=== PATIENT | female | born 1955 | race Caucasian/White ===

== ENCOUNTER 2021-04-21 10:12 | Emergency (ER) | payer BC, SELFPAY ==
[2021-04-21 10:15] VITALS: BP 118/77; PULSE 72; RESP 19; TEMP 36.8; O2SAT 99; BMI 30.5
[2021-04-21 10:44] LABS: Apearance,Urine Clear (Clear); Bilirubin,Urine Negative (Negative); Blood, Urine Negative (Negative); Color,Urine Yellow (Yellow); Glucose,Urine (UA) Negative (Negative); Ketones,Urine Negative (Negative); PH,Urine 5.5 (5.0-8.5); Protein,Urine Negative (Negative); UTC Leukocyte Esterase,Urine Negative (Negative); UTC Nitrate,Urine Negative (Negative); Urobilinogen,Urine 0.2 EU/dl (0.2)
--- NOTE | 2021-04-21 10:52 | HMH.EDUTC ---
[facility] [place] Clinical Impression: Muscle spasm Disposition: Home, Self-Care Condition on Discharge: Good Instructions: Methocarbamol, Etodolac, DI for Muscle Spasm Additional Instructions: *Etodolac kellen 6 hours with meal as needed for pain/inflammation *Not additional anti-inflammatory like Ibuprofen, motrin, aleve, advil with the above amount of Etodolac. You can still take Tylenol every 4 hours as needed if you need something else for pain *Ice 20 minutes every 2 hours for the first 48 hours after the initial injury followed by moist heat every 20 minutes 3-4 times a day to affected area *Muscle relaxer as prescribed as needed for muscle spasms but remember, it WILL cause drowsiness You cannot take it and drive, operate machinery or care for small children. *Keep this area active, no movement leads to more stiffness, However take it easy and avoid heavy lifting pushing or pulling *Follow up with you family doctor if no improvement for further treatment Recommend changing your Pillow as this could be contributing to your neck pain, make sure to get a pillow that supports your neck and helps to keep your C-spine area in alignment Prescriptions: Etodolac 200 mg PO Q6HP PRN #20 cap PRN Reason: Moderate Pain Transmission Status: Pending to [id number] [place] [facility] methocarbamoL [Methocarbamol] 750 mg PO BID PRN #12 tab PRN Reason: Muscle Spasm Transmission Status: Pending to [id number] - [place] [facility] Referrals: Salomón Dotson [Primary Care Provider] - As needed Time of Disposition: 11:08 Medical Decision Making - Ruddy Inquiry Pt receiving controlled substance: No Ruddy was queried for this patient: No Vital Signs: 04/21/21 10:15 04/21/21 11:02 Temperature 98.3 F 98.3 F Temperature Source Oral Pulse Rate 72 Pulse Rate [Right Brachial] 72 Respiratory Rate 19 19 Blood Pressure 118/77 Blood Pressure [Right Arm] 118/77 Blood Pressure Mean [Right Arm] 90 Blood Pressure Source [Right Arm] Automatic Cuff Blood Pressure Position [Right Arm] Sitting 02 Sat by Pulse Oximetry 99 Oxygen Delivery Method Room Air - Lab Data Lab Results 04/21/21 10:36: Urine Color Yellow, Urine Appearance Clear, Urine pH 5.5, Ur Specific [place] 1.010, Urine Protein Negative, Urine Glucose (UA) Negative, Urine Ketones Negative, Urine Blood Negative, Urine Nitrate Negative, Urine Bilirubin Negative, Urine Urobilinogen 0.2, Ur Leukocyte Esterase Negative Medical Decision Narrative: Patient denies injury reports pain was present after waking up last week and thinks she may have slept wrong [facility] [place] General Stated complaint: Neck & shoulder pain Time Seen by Provider: 04/21/21 10:52 Mode of Arrival: Ambulatory Source of Information: Patient Limitations: No Limitations Description of Symptoms (Recalled from Triage Doc. by RN): PATIENT C/O LEFT SHOULDER AND NECK PAIN SINCE THIS MORNING. ALSO C/O BURING AND FREQUENT URINATION HEENT Symptoms (Recalled from RN notes): No Resp Symptoms (Recalled from RN notes): No Skin Symptoms (Recalled from RN notes): No MS Symptoms (Recalled from RN notes): Yes Functional Status (Recalled from RN notes): WNL - History of Present Illness Provider Complaint: Patient states that she has been having pain down the left side of her neck into shoulder area States that she woke up feeling like she was stiff and having muscle spasm last week State that since then it hasnt got any better and she woke up this morning and it was still hurting so she came in States that she has also been feeling like she was urinating more than usual but it has been hot and she has been drinking more fluids and wanted to get checked for UTI - Related Data Home Medications Medication Instructions Recorded Confirmed Domperidone [Domperidone 10mg Tab] 10 mg PO TID 04/21/21 04/21/21 Pantoprazole Sodium [Protonix 40mg 40 mg PO HS 04/21/21 04/21/21 tablet] Previous Rx's Medi
[2021-04-21 11:02] VITALS: BP 118/77; PULSE 72; RESP 19; TEMP 36.8; O2SAT 99
== END 2021-04-21 11:07 | disposition home or self-care (01) ==
PROVIDERS: Emergency Provider Nurse Practitioner; PCP Internal Medicine
DX: M62.838 Other muscle spasm (principal); M25.512 Pain in left shoulder
CPT/HCPCS: 81003; 99202; G0463

== ENCOUNTER 2022-02-15 12:48 | Emergency (ER) | payer BC, SELFPAY ==
[2022-02-15 13:05] VITALS: BP 103/63; PULSE 75; RESP 18; TEMP 36.8; O2SAT 98; BMI 28.3
--- NOTE | 2022-02-15 13:48 | HMH.EDUTC ---
[facility] [place] Disposition Clinical Impression: Otitis media Qualifiers: Otitis media type: suppurative Chronicity: acute Laterality: right Recurrence: non-recurrent Spontaneous tympanic membrane rupture: without spontaneous rupture Qualified Code(s): H66.001 - Acute suppurative otitis media without spontaneous rupture of ear drum, right ear Disposition: Home, Self-Care Condition on Discharge: Good Instructions: Middle Ear Infection Additional Instructions: Start antibiotic as soon as possible and be sure to take as ordered for full length of time even though he should start feeling better in 24-48 hours. Tylenol or Motrin as needed for pain or fever Encourage fluids, water, Gatorade, Powerade, Pedialyte if /toddler/child Warm compresses often helps when placed over ear Return immediately for new or worsening symptoms no noticeable improvement in 48-72 hours and in 10-14 days to ensure the ears are return to baseline. Follow-up with primary care if no improvement Prescriptions: Amoxicillin [Amoxicillin 500mg Tab] 500 mg PO BID 10 Days #20 tab Transmission Status: Pending to [id number] Referrals: Provider,Referral, [Primary Care Provider] - Time of Disposition: 13:53 Medical Decision Making - Ruddy Inquiry Pt receiving controlled substance: No Vital Signs: 02/15/22 13:05 Temperature 98.3 F Temperature Source Oral Pulse Rate [Right Brachial] 75 Respiratory Rate 18 Blood Pressure [Right Arm] 103/63 L Blood Pressure Mean [Right Arm] 76 Blood Pressure Source [Right Arm] Automatic Cuff Blood Pressure Position [Right Arm] Sitting 02 Sat by Pulse Oximetry 98 Oxygen Delivery Method Room Air [facility] [place] HPI - General Chief complaint: Urgent Treatment Center Stated complaint: ear ache Time Seen by Provider: 02/15/22 13:48 Mode of Arrival: Ambulatory Source of Information: Patient Limitations: No Limitations Description of Symptoms (Recalled from Triage Doc. by RN): PATIENT C/O BILATERAL EAR PAIN AND COUGH X 1 WEEK HEENT Symptoms (Recalled from RN notes): Yes Resp Symptoms (Recalled from RN notes): Yes Skin Symptoms (Recalled from RN notes): No MS Symptoms (Recalled from RN notes): No Functional Status (Recalled from RN notes): WNL - History of Present Illness Provider Complaint: 66 yr old female presents for jose ear pain and cough for 1 week - Related Data Home Medications Medication Instructions Recorded Confirmed Domperidone [Domperidone 10mg Tab] 10 mg PO TID 04/21/21 04/21/21 Pantoprazole Sodium [Protonix 40mg 40 mg PO HS 04/21/21 04/21/21 tablet] Previous Rx's Medication Instructions Recorded Etodolac 200 mg PO Q6HP PRN #20 cap 04/21/21 methocarbamoL [Methocarbamol] 750 mg PO BID PRN #12 tab 04/21/21 Amoxicillin [Amoxicillin 500mg Tab] 500 mg PO BID 10 Days #20 tab 02/15/22 Allergies Allergy/AdvReac Type Severity Reaction Status Date / Time No Known Allergies Allergy Verified 04/21/21 10:47 - Worker's Comp Is this a Worker's Comp case?: No [facility] History - Hepatitis A Screen Attestation statement:: This patient has been screened for Hepatitis A risk factors. I have reviewed the patient's past medical history: Yes Medical History: Reports:: Cancer - Social History Alcohol Intake: never Occupational Status: other ROS Obtained: Yes Systems reviewed as appropriate & no additional complaints - Constitutional Constitutional: Reports system reviewed and no additional complaints, except as docu, Denies fatigue, Denies fever(s) - Eyes Eyes: Reports system reviewed and no additional complaints, except as docu, Denies dry eyes - ENT Ears, Nose, Mouth, and Throat: Reports system reviewed and no additional complaints, except as docu, Reports otalgia - Cardiovascular Cardiovascular: Reports system reviewed and no additional complaints, except as docu, Denies chest pain at rest - Respiratory Respiratory: Reports system reviewed and no additional complaints, exc
[2022-02-15 14:00] VITALS: BP 103/63; PULSE 75; RESP 18; TEMP 36.8; O2SAT 98
[2022-02-15 19:03] LABS: Apearance,Urine Clear (Clear); Bilirubin,Urine Negative (Negative); Blood, Urine Negative (Negative); Color,Urine Dark Yellow (Yellow); Glucose,Urine (UA) Negative (Negative); Ketones,Urine Negative (Negative); Protein,Urine Negative (Negative); Urobilinogen,Urine 0.2 EU/dl (0.2)
[2022-02-15 19:04] LABS: UTC Leukocyte Esterase,Urine Negative (Negative); UTC Nitrate,Urine Negative (Negative)
== END 2022-02-15 14:04 | disposition home or self-care (01) ==
PROVIDERS: Emergency Provider Nurse Practitioner Family
DX: H66.001 Acute suppurative otitis media without spontaneous rupture of ear drum, right ear (principal)
CPT/HCPCS: 81003; 99212; G0463

== ENCOUNTER 2022-02-22 10:50 | Emergency (ER) | payer BC, SELFPAY ==
[2022-02-22 11:27] VITALS: BP 107/55; PULSE 72; RESP 18; TEMP 37.3; O2SAT 98; BMI 28.1
--- NOTE | 2022-02-22 11:30 | HMH.EDUTC ---
[facility] [place] Clinical Impression: Otitis media Qualifiers: Otitis media type: unspecified Laterality: right Qualified Code(s): H66.91 - Otitis media, unspecified, right ear Disposition: Home, Self-Care Condition on Discharge: Good Instructions: Middle Ear Infection, Methylprednisolone, Amoxicillin and Clavulanic Acid Additional Instructions: *Monitor Temp, Over the counter Motrin or Tylenol as directed/as needed Tylenol every 4 hours and Motrin every 6 hours (as long as your family doctor has told you that you can take it) for fever or pain. and straight to ER if unable to lower temp less than 101.0 after medication given Make sure to eat yogurt or take a probiotic while taking these antibiotics to help with GI upset *Sleep elevated *Humidifier/Vaporizer *Flonase 2 sprays in each nostril daily but be aware that it may take 2-3 days before you notice improvement Stop Amoxicillin and start Augmentin immediately Follow up IMMEDIATELY for new or worsening symptoms or no Noticeable improvement over the next 48-72 hours. 911 for difficulty breathing or swallowing Prescriptions: Amoxicillin/Potassium Clav [Amox-Clav 875-125 mg Tablet] 1 tab PO BID #14 tab Transmission Status: Received by [id number] Fluticasone Propionate [Flonase 50mcg nasal spray 16gm] 1 spr NS DAILY #1 each Transmission Status: Received by [id number] methylPREDNISolone [Medrol 4mg tab] 4 mg PO DIRECTED #21 tab Transmission Status: Received by [id number] Referrals: Salomón Dotson [Primary Care Provider] - As needed Time of Disposition: 11:49 Medical Decision Making - Ruddy Inquiry Pt receiving controlled substance: No Ruddy was queried for this patient: No Vital Signs: 02/22/22 11:27 Temperature 99.1 F Temperature Source Oral Pulse Rate [Left] 72 Respiratory Rate 18 Blood Pressure [Right Arm] 107/55 L Blood Pressure Mean [Right Arm] 72 02 Sat by Pulse Oximetry 98 Orders (Tests/Meds): ED MEDICATIONS Discontinued Medications Generic Name Dose Route Start Last Admin Trade Name Freq PRN Reason Stop Dose Admin Methylprednisolone Sodium Succinate 125 mg 02/22/22 11:32 02/22/22 11:42 Methylprednisolone Sod Succ 125mg Vial IM 02/22/22 11:33 125 mg ONCE ONE Administration [facility] [place] - General Stated complaint: blockage in ears and cough Time Seen by Provider: 02/22/22 11:30 Mode of Arrival: Ambulatory Source of Information: Patient Limitations: No Limitations Description of Symptoms (Recalled from Triage Doc. by RN): pt c/o ear blockage and pressure that has been going on for 10 days. she endorses a cough as well HEENT Symptoms (Recalled from RN notes): Yes Resp Symptoms (Recalled from RN notes): Yes Skin Symptoms (Recalled from RN notes): No MS Symptoms (Recalled from RN notes): No Functional Status (Recalled from RN notes): wnl - History of Present Illness Provider Complaint: Patient state that she was seen a week or so ago and dx with ear infection States that she has been taking the antibiotics but hasnt helped State that she is still having pain and pressure in her right ear and feeling like it is full and not able to hear out of it - Related Data Home Medications Medication Instructions Recorded Confirmed Domperidone [Domperidone 10mg Tab] 10 mg PO TID 04/21/21 04/21/21 Pantoprazole Sodium [Protonix 40mg 40 mg PO HS 04/21/21 04/21/21 tablet] Previous Rx's Medication Instructions Recorded Etodolac 200 mg PO Q6HP PRN #20 cap 04/21/21 methocarbamoL [Methocarbamol] 750 mg PO BID PRN #12 tab 04/21/21 Amoxicillin [Amoxicillin 500mg Tab] 500 mg PO BID 10 Days #20 tab 02/15/22 Amoxicillin/Potassium Clav 1 tab PO BID #14 tab 02/22/22 [Amox-Clav 875-125 mg Tablet] Fluticasone Propionate [Flonase 1 spr NS DAILY #1 each 02/22/22 50mcg nasal spray 16gm] methylPREDNISolone [Medrol 4mg 4 mg PO DIRECTED #21 tab 02/22/22 tab] Allergies
[2022-02-22 11:59] VITALS: BP 107/55; PULSE 72; RESP 18; TEMP 37.3
== END 2022-02-22 12:00 | disposition home or self-care (01) ==
PROVIDERS: Emergency Provider Nurse Practitioner; PCP Internal Medicine
DX: H66.91 Otitis media, unspecified, right ear (principal); Z79.51 Long term (current) use of inhaled steroids; Z79.52 Long term (current) use of systemic steroids; Z79.899 Other long term (current) drug therapy; Z85.9 Personal history of malignant neoplasm, unspecified
CPT/HCPCS: 96372; 99213; G0463

== ENCOUNTER 2022-12-03 17:04 | Emergency (ER) | payer MEDICARE, BC, SELFPAY ==
--- NOTE | 2022-12-03 17:36 | EXP.UTC ---
Discharge Plan Disposition Patient Disposition: Home, Self-Care Condition: Good Prescriptions Prescriptions: New amoxicillin [amoxicillin] 875 mg tablet 875 mg PO Q12H Qty: 20 0RF benzonatate [benzonatate] 100 mg capsule 100 mg PO TIDP PRN (Reason: Cough) Qty: 30 0RF methylprednisolone 4 mg Tablets,Dose Pack 4 mg PO DIRECTED Qty: 21 0RF promethazine-DM 6.25-15 mg/5 mL Syrup 5 ml PO Q6H PRN (Reason: Cough) Qty: 240 0RF No Action methylprednisolone 4 MG tablet 4 mg PO DIRECTED Qty: 21 0RF Rx Instructions: Take as directed on package instructions Start on 02/23/22 fluticasone propionate 120 SPR/BOT bottle 1 spr NS DAILY Qty: 1 0RF Rx Instructions: one spray in each nostril daily amoxicillin-pot clavulanate 1 EACH tablet 1 tab PO BID Qty: 14 0RF pantoprazole 40 MG tablet,delayed release (DR/EC) 40 mg PO HS Domperidone [Domperidone 10mg Tab] 10 MG tablet 10 mg PO TID etodolac 200 MG capsule 200 mg PO Q6HP PRN (Reason: Moderate Pain) Qty: 20 0RF methocarbamol 750 MG tablet 750 mg PO BID PRN (Reason: Muscle Spasm) Qty: 12 0RF amoxicillin 500 MG tablet 500 mg PO BID 10 Days Qty: 20 0RF Referrals Follow up/Referrals: Salomón Dotson [Primary Care Provider] - See instructions Activity Restrictions/Add. Instructions Additional Instructions/Restrictions: Drink plenty of fluids. Take tylenol or ibuprofen for pain or fever. Take the medications as directed. Follow up with your regular doctor. GO TO THE ER FOR ANY WORSENING SYMPTOMS The cough medication (promethazine dm) will make you drowsy, so don't drive or operate heavy machinery after taking it. The tessalon perles (benzonatate) is for a cough also, it should not make you drowsy. So, you could take this during the day. Clinical Impressions Clinical Impression: Sinusitis, Bronchitis Instructions Patient Instructions: DI for Sinusitis, DI for Acute Bronchitis Discharge ED Provider: David Conde [facility] General Stated complaint: cough congestion Time Seen by Provider: 12/03/22 17:36 History of Present Illness Provider Complaint: She states that for the past 5 days she has had sinus congestion, scratchy sore throat, chest congestion with a productive cough. Related Data Home Medications Medication Instructions Recorded Confirmed Domperidone [Domperidone 10mg Tab] 10 mg PO TID STOMACH/COLON 04/21/21 04/21/21 pantoprazole 40 mg tablet,delayed 40 mg PO HS STOMACH/COLON 04/21/21 04/21/21 release Previous Rx's Medication Instructions Recorded etodolac 200 mg capsule 200 mg PO Q6HP PRN Moderate Pain 04/21/21 #20 caps methocarbamol 750 mg tablet 750 mg PO BID PRN Muscle Spasm #12 04/21/21 tabs amoxicillin 500 mg tablet 500 mg PO BID 10 days #20 tabs 02/15/22 amoxicillin 875 mg-potassium 1 tab PO BID #14 tabs 02/22/22 clavulanate 125 mg tablet fluticasone propionate 50 1 spr NS DAILY #1 ea 02/22/22 mcg/actuation nasal spray,suspension methylprednisolone 4 mg tablet 4 mg PO DIRECTED #21 tabs 02/22/22 amoxicillin 875 mg tablet 875 mg PO Q12H #20 tabs 12/03/22 benzonatate 100 mg capsule 100 mg PO TIDP PRN Cough #30 caps 12/03/22 methylprednisolone 4 mg tablets in 4 mg PO DIRECTED #21 tabs 12/03/22 a dose pack promethazine-DM 6.25 mg-15 mg/5 mL 5 ml PO Q6H PRN Cough #240 mL 12/03/22 oral syrup Allergies Allergy/AdvReac Type Severity Reaction Status Date / Time No Known Allergies Allergy Verified 04/21/21 10:47 [facility] Disclaimer: The information contained in this section may have been updated after the patient was seen, as this information can be updated by other users. Social History Smoking Status: Never smoker alcohol intake: never current occupational status: other Travel in the last 8 weeks: None ROS Obtained: Yes All systems reviewed
[2022-12-03 17:40] VITALS: BP 118/73; PULSE 68; RESP 18; TEMP 37.1; O2SAT 98; BMI 28.3
[2022-12-03 17:56] VITALS: BP 118/73; PULSE 68; RESP 18; TEMP 37.1; O2SAT 98
== END 2022-12-03 17:58 | disposition home or self-care (01) ==
PROVIDERS: Emergency Provider Nurse Practitioner Family; PCP Internal Medicine
DX: J32.9 Chronic sinusitis, unspecified (principal); J40 Bronchitis, not specified as acute or chronic
CPT/HCPCS: 99212; 99213; G0463

== ENCOUNTER 2023-05-28 10:11 | Emergency (ER) | payer MEDICARE, BC, SELFPAY ==
[2023-05-28 10:25] VITALS: BP 133/65; PULSE 56; RESP 20; TEMP 36.8; O2SAT 100; BMI 28.3
--- NOTE | 2023-05-28 10:44 | EXP.UTC ---
Discharge Plan Disposition Patient Disposition: Home, Self-Care Condition: Good Prescriptions Prescriptions: New cyclobenzaprine 10 mg tablet 10 mg PO TID PRN (Reason: muscle spasm) Qty: 30 0RF ibuprofen 800 mg tablet 800 mg PO TID PRN (Reason: pain) Qty: 30 0RF Referrals Follow up/Referrals: Salomón Dotson [Primary Care Provider] - See instructions Activity Restrictions/Add. Instructions Additional Instructions/Restrictions: Do not take ibuprofen today as you have had a Toradol injection. Make sure to eat prior to taking Ibuprofen. If symptoms persist follow up with PCP. Clinical Impressions Clinical Impression: Muscle spasm Low back pain with left-sided sciatica Qualifiers: Chronicity: acute Back pain laterality: bilateral Qualified Code(s): M54.42 - Lumbago with sciatica, left side Instructions Patient Instructions: DI for Low Back Pain, DI for Chronic Pain -- Adult, Exercise May Reduce Risk of Low Back Pain Discharge ED Provider: Nahomy Espinosa [facility] General Stated complaint: lower back pain, no accident Time Seen by Provider: 05/28/23 10:29 History of Present Illness Provider Complaint: Pt relates that she bent over to fill the dogs bowl and felt something move in her back. She states that afterward she used the weed eater and couldn't hardly move afterwards. She reports taking Advil for her symptoms. She states that she is leaving tomorrow for vacation and worries over sitting in car for 11 hours. Related Data Previous Rx's Medication Instructions Recorded cyclobenzaprine 10 mg tablet 10 mg PO TID PRN muscle spasm #30 05/28/23 tabs ibuprofen 800 mg tablet 800 mg PO TID PRN pain #30 tabs 05/28/23 Allergies Allergy/AdvReac Type Severity Reaction Status Date / Time No Known Allergies Allergy Verified 04/21/21 10:47 [facility] Disclaimer: The information contained in this section may have been updated after the patient was seen, as this information can be updated by other users. Social History (Updated 12/03/22 @ 21:55 by David Conde APRN) Smoking Status: Never smoker alcohol intake: never current occupational status: other Travel in the last 8 weeks: None ROS Obtained: Yes All systems reviewed & no additional complaints except as documented Constitutional Constitutional: Reports system reviewed and no additional complaints, except as documented Eyes Eyes: Reports system reviewed and no additional complaints, except as documented ENT Ears, Nose, Mouth, and Throat: Reports system reviewed and no additional complaints, except as documented Cardiovascular Cardiovascular: Reports system reviewed and no additional complaints, except as documented Respiratory Respiratory: Reports system reviewed and no additional complaints, except as documented Gastrointestinal Gastrointestingal: Reports system reviewed and no additional complaints, except as documented Genitourinary Female Genitourinary: Reports system reviewed and no additional complaints, except as documented Musculoskeletal Musculoskeletal: Reports system reviewed and no additional complaints, except as documented, Reports back pain, Reports joint stiffness, Reports limited range of motion, Reports myalgias and Reports radiating pain into limb Integumentary/Breasts Skin/Breast: Reports system reviewed and no additional complaints, except as documented Neurologic Neurologic: Reports system reviewed and no additional complaints, except as documented Endocrine Endocrine: Reports system reviewed and no additional complaints, except as documented Hematologic/Lymphatic Henatologic/Lymphatic: Reports system reviewed and no additional complaints, except as documented Allergic/Immunologic Allergic/Immunologic: Reports system reviewed and no additional complaints, except as documented Physical Exam General General appearance: alert Comment: appears to be in pain Head Head exam: atraumatic and normocephalic
[2023-05-28 10:58] VITALS: BP 133/65; PULSE 56; RESP 20; TEMP 36.8; O2SAT 100
== END 2023-05-28 11:13 | disposition home or self-care (01) ==
PROVIDERS: Emergency Provider Nurse Practitioner Family; PCP Internal Medicine
DX: M54.42 Lumbago with sciatica, left side (principal)
CPT/HCPCS: 96372; 99212; 99214; G0463

== ENCOUNTER 2025-01-08 13:43 | Emergency (ER) | payer MEDICARE, BC, SELFPAY ==
[2025-01-08 13:49] VITALS: BP 130/69; PULSE 70; RESP 18; TEMP 37; O2SAT 100; BMI 28.3
[2025-01-08 13:58] LABS: Coronavirus 19, PCR Not Detected (NotDetected); Influenza B, PCR Not Detected (NotDetected)
--- NOTE | 2025-01-08 14:07 | XR_ITS ---
FINAL REPORT CLINICAL HISTORY: Shortness of air, cough, exposure to flu COMPARISON: None FINDINGS: A portable view of the chest is obtained. Cardiac and mediastinal silhouettes are normal. The lungs are clear. There is no pleural effusion or pneumothorax. IMPRESSION: No acute process on this portable exam. Reviewed, Interpreted and Dictated by Joanne Escalante MD Transcribed by Christina Rascon Authenticated and [facility]
--- NOTE | 2025-01-08 14:09 | ED_ITS ---
<Statement entered by Deena Flores DO - 01/08/25 15:38> I was consulted by the [facility], and we discussed the complexity of the problems being addressed. I approved the treatment and management plan for this patient's care in the emergency department, thus performing a substantive portion of the medical decision making. Deena Flores DO Discharge Plan Disposition Patient Disposition: Home, Self-Care Condition: Good Chief Complaint: Nausea/Vomiting/Diarrhea Prescriptions Prescriptions: No Action cyclobenzaprine 10 mg tablet 10 mg PO TID PRN (Reason: muscle spasm) Qty: 30 0RF ibuprofen 800 mg tablet 800 mg PO TID PRN (Reason: pain) Qty: 30 0RF Referrals Follow up/Referrals: Salomón Dotson [Primary Care Provider] - See instructions Activity Restrictions/Add. Instructions Additional Instructions/Restrictions: Please utilize [id number] cold and flu medications, return to emergency with any worsening signs or symptoms, I recommend good oral fluid intake, oral solid intake, please utilize all medications as prescribed. Follow-up with your family physician. Clinical Impressions Clinical Impression: Influenza A Instructions Patient Instructions: DI for Nausea -- Adult, DI for Influenza -- Adult Print Language Print Language: Dominican Discharge ED Provider: Deena Flores General Adult HPI General Chief complaint: Nausea/Vomiting/Diarrhea Stated complaint: diarrhea vomiting weakness fever flu exposure Time Seen by Provider: 01/08/25 13:58 Mode of Arrival: Ambulatory Source of Information: Patient Description of Symptoms (Recalled from ER Triage Doc. by RN): Pt presents for evaluation of flu-like symptoms since Wednesday. Pt has had vomiting, diarrhea, cough, body aches. Pt was exposed to flu on wednesday, seen at [facility] on wednesday tested negative. History of Present Illness HPI narrative: 69-year-old female presents to the emergency department for 3-day history of fever chills, cough, congestion, nausea vomiting abdominal cramping and diarrhea, poor p.o. intake, known flu exposure on 01/02/2025, has already taken 1 rapid flu test which was negative. She endorses any chest pain, any shortness of breath, denies any constipation, denies urinary type symptomatology, but is had decreased urine output. No melena, no hematochezia, no hematemesis, no hemoptysis, patient denies any history of substance use/abuse, other past medical history consistent with previous diagnosis of non-Hodgkin's lymphoma, status post remission, after chemotherapy and radiation treatments. Patient is currently not on any chemotherapy immune modulator medications. Triage vitals grossly unremarkable. Surgical history consistent with cholecystectomy, prior tubal ligation hysterectomy Onset (ago): day(s) Related Data Previous Rx's ?Medication ?Instructions ?Recorded cyclobenzaprine 10 mg tablet 10 mg PO TID PRN muscle spasm #30 05/28/23 tabs ibuprofen 800 mg tablet 800 mg PO TID PRN pain #30 tabs 05/28/23 Allergies Allergy/AdvReac Type Severity Reaction Status Date / Time No Known Allergies Allergy Verified 04/21/21 10:47 [facility] Disclaimer: The information contained in this section may have been updated after the patient was seen, as this information can be updated by other users. Social History (Updated 12/03/22 @ 21:55 by David Conde APRN) Smoking Status: Never smoker alcohol intake: never current occupational status: other Travel in the last 8 weeks: None Have you lived/traveled outside US in past 30 days?: No Contact w/someone who lives/traveled outside US past 30 days?: No Exposure to someone with infectious disease in past 14 days?: No Do you have a fever (greater than 100.4 F or 38 C)?: No Have you tested positive for COVID-19: No Exposed to someone with COVID-19 in past 14 days?: No Do you have a sore throat?: No Do you have a cough?: No Do you have any weakness?: Yes Do you have any diarrhea?: No Are you experiencing any unusual bleeding?: No Do you have any muscle aches/pain?: Yes Do you have any abdominal pain?: No Are you experiencing loss of taste or smell?: No ROS Obtained: Yes All systems reviewed & no additional complaints except as documented Physical Exam General General appearance: alert and in no apparent distress Head Head exam: atraumatic and normocephalic Eye Eye exam: Present PERRL and EOMI ENT ENT exam: Present mucous membranes moist Neck Neck exam: Present normal inspection Chest Chest inspection: Present normal inspection and symmetric chest wall rise Respiratory Respiratory exam: Present normal lung sounds bilaterally; Absent respiratory distress Cardiovascular Cardiovascular exam: Present regular rate and normal rhythm Abdominal Exam Abdominal exam: Present soft; Absent tenderness Extremities Exam Extremities exam: Present normal inspection Neurological Exam Neurological exam: Present alert and oriented X3 Psychiatric Psychiatric exam: Present normal affect Skin Skin exam: Present warm and dry Medical Decision Making Medical Records Medical records reviewed: Yes I reviewed the patient's medical records. Screening: Per USPSTF and CDC recommendations, given the prevalence of disease in our region, it is our hospital?s policy to screen for HIV and viral Hepatitis for all patients aged 18 and over and those with ongoing risk factors. Ruddy Inquiry Pt receiving controlled substance: No Ruddy was queried for this patient: No Vital Signs: 01/08/25 13:49 Temperature 98.6 F Temperature Source Oral Pulse Rate [Right] 70 Respiratory Rate 18 Blood Pressure [Right Arm] 130/69 Blood Pressure Mean [Right Arm] 89 Blood Pressure Source [Right Arm] Automatic Cuff Blood Pressure Position [Right Arm] Sitting 02 Sat by Pulse Oximetry 100 Oxygen Delivery Method Room Air Lab Data Lab Results 01/08/25 13:46: SARS-CoV-2 (PCR) Not detected, Influenza A Untype (PCR) Detected A, Influenza Type B (PCR) Not detected 01/08/25 14:20: WBC 4.3 L, RBC 4.97, Hgb 14.7, Hct 44.1, MCV 88.7, MCH 29.6, MCHC 33.3, RDW 12.6, Plt Count 173, MPV 10.7 H, Neut % (Auto) 71.4, Lymph % (Auto) 24.2, [place] % (Auto) 4.0, Eos % (Auto) 0.0 L, Baso % (Auto) 0.2, Neut # (Auto) 3.1, Lymph # (Auto) 1.0, [place] # (Auto) 0.2, Eos # (Auto) 0.0, Baso # (Auto) 0.0, Sodium 133 L, Potassium 3.5, Chloride 99, Carbon Dioxide 29, Anion Gap 8.5, BUN 10, Creatinine 0.60, Estimated Creat Clear 66, Estimated GFR 100, Est GFR ( Amer) 121, Glucose 93, Lactate 1.0, Calcium 8.5, Total Bilirubin 0.2, AST 43 H, ALT 33, Alkaline Phosphatase 64, Total Protein 5.7 L, Albumin 4.1, Globulin 1.6, Albumin/Globulin Ratio 2.6 H, Lipase 170 01/08/25 14:20 01/08/25 14:20 Orders (Tests/Meds): ED MEDICATIONS Discontinued Medications Generic Name Dose Route Start Last Admin Trade Name Yudy PRN Reason Stop Dose Admin Sodium Chloride 1,000 mls @ 999 mls/hr 01/08/25 14:06 01/08/25 14:30 Sod Chlor 0.9% 1000ml Bag IV 01/08/25 15:06 999 mls/hr .Q1H1M ONE Administration Ondansetron HCl 4 mg 01/08/25 14:06 01/08/25 14:30 Ondansetron 4mg/2ml Vial IV 01/08/25 14:07 4 mg ONCE ONE Administration ORDERS Category Date Time Status XR chest portable Stat Exams 01/08/25 14:07 Taken Complete Blood Count Auto Diff Stat Lab 01/08/25 14:20 Completed Comprehensive Metabolic Panel Stat Lab 01/08/25 14:20 Completed Lactic Acid Stat Lab 01/08/25 14:20 Completed Lipase Stat Lab 01/08/25 14:20 Completed Rapid PCR Covid and Flu A/B Stat Lab 01/08/25 13:46 Completed Urinalysis and Microscopic Stat Lab 01/08/25 14:06 Ordered Medical Decision Narrative: 69-year-old female presents emergency department with URI type symptomatology nausea vomiting diarrhea differential diagnose, not limited to, gastroenteritis, influenza, acute URI, acute bronchitis, pneumonia, electrolyte disturbance, acute UTI. Discussed patient case with attending physician Will obtain basic laboratory studies lactate lipase, rapid PCR COVID and flu, urinalysis, will give 4 mg IV Zofran for nausea, obtain chest x-ray, will give 1 L IV NS. CBC is notable for mild leukopenia at 4.3 otherwise unremarkable CBC Mild hyponatremia 133. There is no lactic acidosis, AST is minimally elevated at 43 COVID-19 is negative, influenza A is positive, influenza B is negative. Discussed the results with the patient and at the bedside, patient is remained hemodynamically stable with her time in the emergency department, I gave patient strict ED return precautions, recommend generalized supportive care for influenza, recommend good p.o. fluids p.o. solids, will prescribe 4 mg p.o. Zofran ODT for nausea. Patient will return emerged part any worsening signs or symptoms. Patient will follow with PCP as directed. Personal reviewed the patient's chest x-ray, no signs of consolidation pneumonia pneumothorax, otherwise unremarkable chest examination. Discussed this with the patient at the bedside, formal radiology report is pending. Urinalysis report is pending. Will not change over. She has no dysuria or urinary type symptomatology. Once again, patient and family voiced understanding of the current treatment plan/discharge plan. Critical Care Critical Care Time Critical Care Time: No
[2025-01-08] MEDS: ONDANSETRON 4MG/2ML VIAL 4 MG IV (14:30)
[2025-01-08] MEDS: 0.9 % SODIUM CHLORIDE 1000ML 1,000 ML 999 ML IV (14:30)
[2025-01-08 14:38] LABS: Basophils % 0.2 % (0.1-2.0); Hematocrit 44.1 % (37.0-47.0); Hemoglobin 14.7 g/dL (12.2-16.2); Lymphocytes % 24.2 % (10-50); Mean Corpuscular HGB Conc 33.3 g/dL (31.8-35.4); Mean Corpuscular Hemoglobin 29.6 pg (27.0-31.2); Mean Corpuscular Volume 88.7 fl (81-99); Mean Platelet Volume 10.7 fl (7.4-10.4); Monocytes # 0.2 K/mm3 (0.1-1.0); Neutrophils # 3.1 K/mm3 (1.8-7.8); Neutrophils % 71.4 % (37.0-80.0); Platelet Count 173 K/mm3 (142-424); Red Blood Count 4.97 M/mm3 (4.20-5.40); Red Cell Distribution Width 12.6 % (11.5-17.5); White Blood Count 4.3 K/mm3 (4.8-10.8)
[2025-01-08 14:46] LABS: Albumin Level 4.1 g/dl (3.5-5.0); Chloride 99 mmol/L (98-107); Potassium 3.5 mmoL/L (3.5-5.1); Sodium 133 mmol/L (136-145)
[2025-01-08 14:48] LABS: Blood Urea Nitrogen 10 mg/dl (7-17); Creatinine Clearance Estimated 66 mL/min (50-200); Estimated Glomerular Filt Rate 100 ml/min (>60); GFR (African American) 121 ML/MIN (>60)
[2025-01-08 14:49] LABS: Alanine Aminotransferase 33 U/L (12-78); Albumin/Globulin Ratio 2.6 (1.1-1.8); Alkaline Phosphatase 64 U/L (38-126); Anion Gap 8.5 mEq/L (5-15); Aspartate Amino Transferase 43 U/L (14-36); Bilirubin,Total 0.2 mg/dl (0.2-1.3); Calcium 8.5 mg/dl (8.4-10.2); Carbon Dioxide 29 mmol/L (22.0-30.0); Globulin 1.6 g/dL (1.3-3.2); Glucose 93 mg/dl (74-100); Lipase 170 U/L (23-300); Total Protein,Serum 5.7 g/dl (6.3-8.2)
[2025-01-08 15:02] LABS: Influenza A, PCR Detected (NotDetected)
[2025-01-08 15:24] LABS: Microscopic, Urine URINE MICROSCOPIC (MICROSCOPIC)
[2025-01-08 15:27] LABS: Appearance,Urine CLEAR (Clear); Bilirubin,Urine Negative (Negative); Blood, Urine Negative (Negative); Color,Urine YELLOW (Yellow); Glucose,Urine (UA) Negative (Negative); Ketones,Urine Negative (Negative); Leukocyte Esterase,Urine SMALL (Negative); Nitrate,Urine Negative (Negative); Protein,Urine Negative (Negative); Specific Gravity, Urine <= 1.005 (1.005-1.030); Urobilinogen,Urine 0.2 EU/dl (0.2)
[2025-01-08 15:33] VITALS: BP 126/70; PULSE 60; RESP 16; TEMP 36.8; O2SAT 99
[2025-01-08 15:37] LABS: Bacteria,Urine Trace /lpf
--- NOTE | 2025-01-08 15:39 | [facility].EDGENADL ---
Discharge Plan Disposition Patient Disposition: Home, Self-Care Condition: Good Prescriptions Prescriptions: New ondansetron 4 mg tablet,disintegrating 4 mg PO Q6H PRN (Reason: nausea and vomiting) Qty: 10 0RF No Action cyclobenzaprine 10 mg tablet 10 mg PO TID PRN (Reason: muscle spasm) Qty: 30 0RF ibuprofen 800 mg tablet 800 mg PO TID PRN (Reason: pain) Qty: 30 0RF Referrals Follow up/Referrals: Salomón Dotson [Primary Care Provider] - See instructions Activity Restrictions/Add. Instructions Additional Instructions/Restrictions: Please utilize [id number] cold and flu medications, return to emergency with any worsening signs or symptoms, I recommend good oral fluid intake, oral solid intake, please utilize all medications as prescribed. Follow-up with your family physician. Clinical Impressions Clinical Impression: Influenza A Instructions Patient Instructions: DI for Influenza -- Adult, DI for Nausea -- Adult Print Language Print Language: Luxembour[place] Discharge ED Provider: Deena Flores General Adult HPI <DARWIN King - Last Filed: 01/08/25 15:40> General Chief complaint: Nausea/Vomiting/Diarrhea Stated complaint: diarrhea vomiting weakness fever flu exposure Time Seen by Provider: 01/08/25 13:58 Mode of Arrival: Ambulatory Source of Information: Patient Description of Symptoms (Recalled from ER Triage Doc. by RN): Pt presents for evaluation of flu-like symptoms since Wednesday. Pt has had vomiting, diarrhea, cough, body aches. Pt was exposed to flu on wednesday, seen at [facility] on wednesday tested negative. History of Present Illness Onset (ago): day(s) Related Data Previous Rx's ?Medication ?Instructions ?Recorded cyclobenzaprine 10 mg tablet 10 mg PO TID PRN muscle spasm #30 05/28/23 tabs ibuprofen 800 mg tablet 800 mg PO TID PRN pain #30 tabs 05/28/23 ondansetron 4 mg disintegrating 4 mg PO Q6H PRN nausea and 01/08/25 tablet vomiting #10 tabs Allergies Allergy/AdvReac Type Severity Reaction Status Date / Time No Known Allergies Allergy Verified 04/21/21 10:47 PFSH <DARWIN King - Last Filed: 01/08/25 15:40> [facility] Disclaimer: The information contained in this section may have been updated after the patient was seen, as this information can be updated by other users. Social History (Updated 12/03/22 @ 21:55 by David Conde APRN) Smoking Status: Unknown if ever smoked alcohol intake: never current occupational status: other Travel in the last 8 weeks: None Have you lived/traveled outside US in past 30 days?: No Contact w/someone who lives/traveled outside US past 30 days?: No Exposure to someone with infectious disease in past 14 days?: No Do you have a fever (greater than 100.4 F or 38 C)?: No Have you tested positive for COVID-19: No Exposed to someone with COVID-19 in past 14 days?: No Do you have a sore throat?: No Do you have a cough?: No Do you have any weakness?: Yes Do you have any diarrhea?: No Are you experiencing any unusual bleeding?: No Do you have any muscle aches/pain?: Yes Do you have any abdominal pain?: No Are you experiencing loss of taste or smell?: No <DARWIN King - Last Filed: 01/08/25 15:40> ROS Obtained: Yes All systems reviewed & no additional complaints except as documented Physical Exam <DARWIN King - Last Filed: 01/08/25 15:40> General General appearance: alert and in no apparent distress Respiratory Respiratory exam: Present normal lung sounds bilaterally Cardiovascular Cardiovascular exam: Present regular rate Neurological Exam Neurological exam: Present alert Medical Decision Making <DARWIN King - Last Filed: 01/08/25 15:40> Medical Records Screening: Per USPSTF and CDC recommendations, given the prevalence of disease in our region, it is our hospital?s policy to screen for HIV and viral Hepatitis for all patients aged 18 and over and those with ongoing risk factors. Ruddy Inquiry Pt receiving controlled substance: No Vital Signs: 01/08/25 13:49 01/08/25 15:33 Temperature 98.6 F 98.2 F Temperature Source Oral Oral Pulse Rate 60 Pulse Rate [Right] 70 Respiratory Rate 18 16 Blood Pressure 126/70 Blood Pressure [Right Arm] 130/69 Blood Pressure Mean [Right Arm] 89 Blood Pressure Source Automatic Cuff Blood Pressure Source [Right Arm] Automatic Cuff Blood Pressure Position Sitting Blood Pressure Position [Right Arm] Sitting 02 Sat by Pulse Oximetry 100 Oxygen Delivery Method Room Air Room Air Lab Data Lab Results 01/08/25 13:46: SARS-CoV-2 (PCR) Not detected, Influenza A Untype (PCR) Detected A, Influenza Type B (PCR) Not detected 01/08/25 14:20: WBC 4.3 L, RBC 4.97, Hgb 14.7, Hct 44.1, MCV 88.7, MCH 29.6, MCHC 33.3, RDW 12.6, Plt Count 173, MPV 10.7 H, Neut % (Auto) 71.4, Lymph % (Auto) 24.2, [place] % (Auto) 4.0, Eos % (Auto) 0.0 L, Baso % (Auto) 0.2, Neut # (Auto) 3.1, Lymph # (Auto) 1.0, [place] # (Auto) 0.2, Eos # (Auto) 0.0, Baso # (Auto) 0.0, Sodium 133 L, Potassium 3.5, Chloride 99, Carbon Dioxide 29, Anion Gap 8.5, BUN 10, Creatinine 0.60, Estimated Creat Clear 66, Estimated GFR 100, Est GFR ( Amer) 121, Glucose 93, Lactate 1.0, Calcium 8.5, Total Bilirubin 0.2, AST 43 H, ALT 33, Alkaline Phosphatase 64, Total Protein 5.7 L, Albumin 4.1, Globulin 1.6, Albumin/Globulin Ratio 2.6 H, Lipase 170 01/08/25 15:21: Urine Color Yellow, Urine Appearance Clear, Urine pH 6.0, Ur Specific [place] <= 1.005, Urine Protein Negative, Urine Glucose (UA) Negative, Urine Ketones Negative, Urine Blood Negative, Urine Nitrate Negative, Urine Bilirubin Negative, Urine Urobilinogen 0.2, Ur Leukocyte Esterase Small, Urine RBC None, Urine WBC 5-10, Ur Squamous Epith Cells None, Urine Bacteria Trace 01/08/25 14:20 01/08/25 14:20 Orders (Tests/Meds): ED MEDICATIONS Discontinued Medications Generic Name Dose Route Start Last Admin Trade Name Freq PRN Reason Stop Dose Admin Sodium Chloride 1,000 mls @ 999 mls/hr 01/08/25 14:06 01/08/25 14:30 Sod Chlor 0.9% 1000ml Bag IV 01/08/25 15:06 999 mls/hr .Q1H1M ONE Administration Ondansetron HCl 4 mg 01/08/25 14:06 01/08/25 14:30 Ondansetron 4mg/2ml Vial IV 01/08/25 14:07 4 mg ONCE ONE Administration ORDERS Category Date Time Status XR chest portable Stat Exams 01/08/25 14:07 Completed Complete Blood Count Auto Diff Stat Lab 01/08/25 14:20 Completed Comprehensive Metabolic Panel Stat Lab 01/08/25 14:20 Completed HIV Combo Stat Lab 01/08/25 15:35 Ordered Hepatitis C Ab Qual. W/ RFX Stat Lab 01/08/25 15:35 Ordered Lactic Acid Stat Lab 01/08/25 14:20 Completed Lipase Stat Lab 01/08/25 14:20 Completed Rapid PCR Covid and Flu A/B Stat Lab 01/08/25 13:46 Completed Urinalysis and Microscopic Stat Lab 01/08/25 15:21 Completed <Deena N Mark, DO - Last Filed: 01/08/25 15:52> Vital Signs: 01/08/25 13:49 01/08/25 15:33 Temperature 98.6 F 98.2 F Temperature Source Oral Oral Pulse Rate 60 Pulse Rate [Right] 70 Respiratory Rate 18 16 Blood Pressure 126/70 Blood Pressure [Right Arm] 130/69 Blood Pressure Mean [Right Arm] 89 Blood Pressure Source Automatic Cuff Blood Pressure Source [Right Arm] Automatic Cuff Blood Pressure Position Sitting Blood Pressure Position [Right Arm] Sitting 02 Sat by Pulse Oximetry 100 Oxygen Delivery Method Room Air Room Air Lab Data Lab Results 01/08/25 13:46: SARS-CoV-2 (PCR) Not detected, Influenza A Untype (PCR) Detected A, Influenza Type B (PCR) Not detected 01/08/25 14:20: WBC 4.3 L, RBC 4.97, Hgb 14.7, Hct 44.1, MCV 88.7, MCH 29.6, MCHC 33.3, RDW 12.6, Plt Count 173, MPV 10.7 H, Neut % (Auto) 71.4, Lymph % (Auto) 24.2, [place] % (Auto) 4.0, Eos % (Auto) 0.0 L, Baso % (Auto) 0.2, Neut # (Auto) 3.1, Lymph # (Auto) 1.0, [place] # (Auto) 0.2, Eos # (Auto) 0.0, Baso # (Auto) 0.0, Sodium 133 L, Potassium 3.5, Chloride 99, Carbon Dioxide 29, Anion Gap 8.5, BUN 10, Creatinine 0.60, Estimated Creat Clear 66, Estimated GFR 100, Est GFR ( Amer) 121, Glucose 93, Lactate 1.0, Calcium 8.5, Total Bilirubin 0.2, AST 43 H, ALT 33, Alkaline Phosphatase 64, Total Protein 5.7 L, Albumin 4.1, Globulin 1.6, Albumin/Globulin Ratio 2.6 H, Lipase 170 01/08/25 15:21: Urine Color Yellow, Urine Appearance Clear, Urine pH 6.0, Ur Specific [place] <= 1.005, Urine Protein Negative, Urine Glucose (UA) Negative, Urine Ketones Negative, Urine Blood Negative, Urine Nitrate Negative, Urine Bilirubin Negative, Urine Urobilinogen 0.2, Ur Leukocyte Esterase Small, Urine RBC None, Urine WBC 5-10, Ur Squamous Epith Cells None, Urine Bacteria Trace Orders (Tests/Meds): ED MEDICATIONS Discontinued Medications Generic Name Dose Route Start Last Admin Trade Name Freq PRN Reason Stop Dose Admin Sodium Chloride 1,000 mls @ 999 mls/hr 01/08/25 14:06 01/08/25 14:30 Sod Chlor 0.9% 1000ml Bag IV 01/08/25 15:06 999 mls/hr .Q1H1M ONE Administration Ondansetron HCl 4 mg 01/08/25 14:06 01/08/25 14:30 Ondansetron 4mg/2ml Vial IV 01/08/25 14:07 4 mg ONCE ONE Administration ORDERS Category Date Time Status XR chest portable Stat Exams 01/08/25 14:07 Completed Complete Blood Count Auto Diff Stat Lab 01/08/25 14:20 Completed Comprehensive Metabolic Panel Stat Lab 01/08/25 14:20 Completed HIV Combo Stat Lab 01/08/25 15:35 Ordered Hepatitis C Ab Qual. W/ RFX Stat Lab 01/08/25 15:35 Ordered Lactic Acid Stat Lab 01/08/25 14:20 Completed Lipase Stat Lab 01/08/25 14:20 Completed Rapid PCR Covid and Flu A/B Stat Lab 01/08/25 13:46 Completed Urinalysis and Microscopic Stat Lab 01/08/25 15:21 Completed Medical Decision Narrative: Note created erroneously, please see prior note Critical Care <DARWIN King - Last Filed: 01/08/25 15:40> Critical Care Time Critical Care Time: No
[2025-01-08 17:17] LABS: HIV Combo NEGATIVE (Negative)
[2025-01-08 17:24] LABS: Hepatitis C Ab Qual. W/ RFX NEGATIVE (Negative)
== END 2025-01-08 15:46 | disposition home or self-care (01) ==
PROVIDERS: Physician Assistant; Emergency Provider Emergency Medicine; PCP Internal Medicine
DX: J10.1 Influenza due to other identified influenza virus with other respiratory manifestations (principal); R50.9 Fever, unspecified; R05.9 Cough, unspecified; R09.81 Nasal congestion; R11.2 Nausea with vomiting, unspecified; R10.9 Unspecified abdominal pain; R19.7 Diarrhea, unspecified
CPT/HCPCS: 71045; 80053; 81001; 83605; 83690; 85025; 86803; 87389; 87636; 96361; 96374; 99283; J2405; J7030